=== PATIENT | male | born 1965 | race Hispanic/Latino ===

== ENCOUNTER 2018-06-26 06:17 | Day surgery (SDC) | payer OTHER ==
[2018-06-24 08:23] VITALS: BMI 28.7
[2018-06-26 06:59] LABS: BASO # 0.02 K/mm3 (0.0-2.0); BASO % 0.2 % (0.0-3.0); EOS # 0.2 (0.0-0.7); GRAN # 4.88 (1.4-6.5); GRAN % 55.5 % (50.0-68.0); HEMOGLOBIN 16.1 g/dL (14.0-18.0); LYMPH # 3.1 (1.2-3.4); LYMPH % 35.7 % (22.0-35.0); MEAN CELL VOLUME 87.2 fl (80.0-105.0); MEAN CORPUSCULAR HEMOGLOBIN 30.3 pg (25.0-35.0); MEAN CORPUSCULAR HGB CONC 34.8 g/dl (31.0-37.0); MEAN PLATELET VOLUME 9.9 fl (7.0-11.0); MONO # 0.6 (0.1-0.6); MONO % 6.6 % (1.0-6.0); RBC 5.31 10^6/uL (3.5-6.1); RED CELL DISTRIBUTION WIDTH 12.5 % (11.5-14.5); WHITE BLOOD COUNT 8.8 10^3/uL (4.5-11.0)
[2018-06-26 07:03] VITALS: O2SAT 97
[2018-06-26] MEDS ORDERED: Lidocaine 2% Inj (20ml) ONE (07:03)
[2018-06-26] MEDS ORDERED: Iodixanol 320 MG/ML 200 ML BOTTLE IV ONE (07:04)
[2018-06-26] MEDS ORDERED: Iohexol 350mgl/ml 50 ML ONE (07:04)
[2018-06-26] MEDS ORDERED: Iodixanol 320 MG/ML 100 ML BOTTLE IV ONE (07:04)
[2018-06-26] MEDS ORDERED: Phenylephrine 10 mg/ml Inj ONE (07:05)
[2018-06-26 07:07] LABS: INR 0.9; PARTIAL THROMBOPLASTIN TIME 31.4 Seconds (25.1-36.5); PROTHROMBIN TIME 10.3 SECONDS (9.4-12.5)
[2018-06-26] MEDS ORDERED: Nitroglycerin 50mg in D5W 50 MG/250 ML BOTTLE IV ONE (07:07)
[2018-06-26] MEDS ORDERED: Verapamil 2 ML ONE (07:07)
[2018-06-26 07:11] LABS: BLOOD UREA NITROGEN 14 mg/dL (7-21); GFR NON-AFRICAN AMERICAN > 60
[2018-06-26] MEDS ORDERED: Midazolam 2 MG/2 ML VIAL ONE ×3 (08:01→08:33)
[2018-06-26] MEDS ORDERED: Bacitracin 500 Units/gm Oint Foilpak UD TOP ONE (09:29)
--- NOTE | 2018-06-26 11:07 | CARDCATH ---
PROCEDURE DATE: 06/26/2018 INDICATIONS: Mr. Valiente is a pleasant 53-year-old male who presented to [facility] with acute myocardial infarction of left anterior descending artery ruptured plaque on 06/06/2018, who was noted to have high-grade obtuse marginal stenosis. He was brought back for staged intervention of the OM and evaluation of the other coronary status and EF evaluation. PROCEDURE PERFORMED: Left heart catheterization with selective left and right coronary angiogram, left ventriculogram, IVUS of left circumflex OM and IVUS of left anterior descending artery, PTCA drug-eluting stent of left circumflex into OM with a 3.5 x 22 mm Adolfo drug-eluting stent, inflated to 20 atmospheres of pressure, lesion reduction from 90% down to 0% PARAM 3 flow, 6-Divehi left distal radial arterial access, wristband for hemostasis. ANGIOGRAPHIC FINDINGS: Left main large-sized vessel bifurcation to LAD and circ, LAD has a proximal 50% stenosis. Proximal stent recently patent. Mid segment had haziness concern for possible flap, few millimeters below the prior stent placement with 50% luminal narrowing PARAM 3 flow. Left anterior descending artery gives off 2 medium-sized diagonal branches. Left circumflex runs in the AV groove, has a mid 85% stenosis giving rise to an large obtuse marginal branch which has a proximal 90% calcific stenosis. Left circumflex runs in the AV groove, has its medium-sized vessel, gives off the obtuse marginal branch which gives 2 superior-inferior branches. RCA, large-sized vessel, anterior takeoff, has a distal 60% stenosis. IVUS of the LAD showed proximal segment had 70% plaque stenosis with minimal luminal area of 6.6. Proximal stent was widely patent. The mid segment has calcific 50% nonobstructive stenosis with minimal luminal area of 5.2. Intervention of the left circumflex was done. Prowater wire was used to negotiate through the circumflex into the obtuse marginal branch. Lesion was predilated with a 2.5 and 3.0 balloons and subsequently IVUS was done, which showed the proximal vessel was 4.0 and a distal vessel was 3.25. At this point, a 3.5 x 22 [place] stent was deployed extending from the chenega circ across the obtuse marginal into the OM. Final angiograms done showed good lesion reduction onto 0%, good PARAM 3 flow. IMPRESSION: Intravascular ultrasound interrogation of left anterior descending showed proximal left anterior descending 70% stenosis with minimal luminal area of 6.6, widely patent stent, successful percutaneous transluminal circumflex artery drug-eluting stent of left circumflex obtuse marginal, deployment of 3.5 x 22 Adolfo drug-eluting stent. RECOMMENDATIONS: The patient can be discharged home in 3-6 hours. Keep the patient on dual antiplatelet therapy. Change his statin to high-dose, Crestor dose has really changed from 5 mg to 40 mg. Also, add Zetia 10 mg along with Vascepa. Continue guideline-directed therapy including beta-blockers and dual antiplatelet therapy with aspirin and Brilinta. The patient is to follow up with Dr. Ceballos in office in 2-4 weeks' time. Consult cardiac rehabilitation at a facility near his house. I have the patient follow with Dr. Her . Jak Ceballos MD
--- NOTE | 2018-06-26 12:39 | CARD ---
APPROVED REPORT Date of service: 06/26/2018 EKG Measurement Heart [id number] <Conclusion> Normal sinus rhythm Artifact V 5 Probably normal ECG
[2018-06-26 12:49] VITALS: TEMP 98.1
[2018-06-26] MEDS ORDERED: Bacitracin 500 Units/gm Oint Foilpak UD ONE (13:28)
[2018-06-26 14:13] VITALS: RESP 18
[2018-06-26 14:15] VITALS: BP 125/82; PULSE 82
== END 2018-06-26 15:13 | disposition home or self-care (01) ==
LOC: CATH 06:17 → 2RSO 09:40 → CATH 15:13
PROVIDERS: ATTEND Internal Medicine Interventional Cardiology
DX: I25.118 Atherosclerotic heart disease of native coronary artery with other forms of angina pectoris (principal); I21.9 Acute myocardial infarction, unspecified; I10 Essential (primary) hypertension
CPT/HCPCS: 36415; 80048; 82948; 83036; 85025; 85175; 85610; 85730; 86850; 86900; 93005; 93458; 93571; 99152; 99153; C1725 ×2; C1753; C1769 ×2; C1874; C1887 ×2; C1894; C9600; J1644 ×2; J2250; J3010; Q9966; Q9967